=== PATIENT | female | born 1935 | race Caucasian/White ===

== ENCOUNTER 2016-08-24 11:03 | Day surgery (SDC) | payer MEDICARE, OTHER ==
[~2016-08-24] VITALS: Ht 132.1 cm; Wt 74.4 kg
[2016-08-24 12:05] VITALS: Ht 132.1 cm; Wt 74.4 kg
[2016-08-24] MEDS ORDERED: METO50TA16 PO (12:15)
[2016-08-24] MEDS ORDERED: LEVO50TA74 PO (12:15)
[2016-08-24] MEDS ORDERED: ASPI-664 PO (12:15)
[2016-08-24] MEDS ORDERED: PROPOFOL 20 ML ONE (12:54)
[2016-08-24 13:07] VITALS: BP 186/82; PULSE 67; RESP 20
[2016-08-24 13:45] VITALS: BP 184/76; PULSE 70; RESP 15
--- NOTE | 2016-08-28 11:26 | GILP ---
Stan BARKLEY PROCEDURE DATE OF PROCEDURE: 08/24/2016 SURGEON: Jaci Lawton MD. PROCEDURE PERFORMED: Esophagogastroduodenoscopy and biopsy. PREOPERATIVE DIAGNOSIS: Abdominal pain. POSTOPERATIVE DIAGNOSIS: Gastritis and erosions. SPECIMEN: Gastroesophageal biopsies were taken for H pylori. INDICATION: The patient is an 81-year-old female patient who had upper abdominal pain, not responding to therapy. The patient was also noted to be positive for occult blood in stool. The patient was scheduled for endoscopic examination for further evaluation. The procedure and possible complications were well-explained to the patient, the patient understood and consented to the procedure. DESCRIPTION OF PROCEDURE: Under the influence of anesthesia the gastroscope was carefully introduced into the esophagus and the larynx, it was advanced to the stomach into the pylorus, into the duodenal bulb and descending duodenum. Findings of the esophagus: The mucosa was normal. Stomach: The patient had gastritis and erosions. Gastric mucosal biopsies were taken for H pylori test. The duodenum was normal. The patient tolerated the procedure very well. There was no complications from the procedure. At the end of the procedure she was awake with stable vital signs. She was discharged home to the care of her family. IMPRESSION: 1. Gastritis with erosions. 2. Gastric mucosal biopsies were taken for Helicobacter pylori testing. PLAN: Omeprazole 40 mg orally every day morning. Await H pylori test report. Dictated By: MD TK Reyes/fran/barry /Document#: [id number] Conf#:[id number] DID#: [id number] CC: Jaci Lawton MD;*[facility]*
== END 2016-08-24 18:04 | disposition home or self-care (01) ==
LOC: GIL 11:03
PROVIDERS: ATTEND Internal Medicine Gastroenterology
DX: K29.50 Unspecified chronic gastritis without bleeding (principal); I10 Essential (primary) hypertension; E03.9 Hypothyroidism, unspecified; E66.9 Obesity, unspecified; Z68.41 Body mass index [BMI] 40.0-44.9, adult
CPT/HCPCS: 87081